=== PATIENT | female | born 1955 | race Caucasian/White ===

== ENCOUNTER 2023-12-03 10:31 | Outpatient (CLI) | payer BC, SELFPAY ==
--- NOTE | 2023-12-03 10:45 | MM_ITS ---
Patient: KO GARG Facility:?[facility] RIS Patient ID:?[id number] Site Patient ID:?[id number]. Site :?[id number] Study:?XRay-Breast Bilateral 3D W/CAD-12/03/2023 1:22:43 PM Ordering Physician:Sheri Final Report: BILATERAL SCREENING MAMMOGRAM WITH COMPUTER-AIDED DETECTION AND TOMOSYNTHESIS TECHNIQUE: CC and MLO views were obtained. These mammographic images have been obtained using full-field digital technique. These mammographic images were interpreted with the benefit of computer-aided detection. Breast Tomosynthesis was used in this interpretation. COMPARISON FILM: No previous available. FINDINGS: There are scattered areas of fibroglandular density. IMPRESSION: There is no radiographic evidence for malignancy. ASSESSMENT: BI-RADS Category 2: Benign RECOMMENDATION: Routine screening mammogram in 1 year. A lay language report of this examination will be provided to the patient. Spike Andrews M.D. Diagnostic Radiologist [email or web address] DSM/sp R& Transcribed: 4:40 p.m. SP/Dictated by: Spike Andrews MD @ 12/18/2023 10:18:00 AM Signed by:?Spike Andrews MD @12/19/2023 5:30:13 AM (Electronic Signature)
== END 2023-12-03 10:32 | disposition home or self-care (01) ==
LOC: MAMMO 10:32
PROVIDERS: PCP Internal Medicine; Visit Provider Internal Medicine
DX: Z12.31 Encounter for screening mammogram for malignant neoplasm of breast (principal)
CPT/HCPCS: 77063; 77067

== ENCOUNTER 2024-02-03 12:54 | Outpatient (CLI) | payer BC, SELFPAY ==
--- OUTSIDE RECORDS SUMMARY | 2024-02-06 07:17 | XMS_ITS | Data Portability ---
Author Organization [place] [facility], [facility] Address [address] [place] [address] Care Team Providers Care Health Record Technician Name Role Phone DEVANTE KIRSTIE Primary Care Provider [phone] Assessment No assessment recorded. Plan of Treatment Reminders Order Date Submit Date Provider Last Modified By Organization Details Last Modified Time Details Appointments None recorded. Lab urinalysi s, dipstick 2022 023 [email or web address] [facility], [address], [place], [address], 10:13:31 Referral None recorded. Procedures None recorded. Surgeries None recorded. Imaging None recorded. Medication Orders Macrobid 100 mg capsule 2022 023 [id number], [address] [place], [place], [id number], 3 13:21:36 Patient TargetsNo targets recorded. Patient InstructionsNo instructions recorded. Reason for Referral None Reported. Results Created Date Observation Date Name Description Value Unit Range Abnormal Flag LastModifiedBy Organization Detail LastModifiedTime 07/22/2007/22/2023 urina lysis , dipst ick Color-Status Yellow Not Available [facility] [address], [place], [address], 07/22/2023 10:12:26 07/22/20 23 07/22/2023 urina lysis , dipst ick Clarity-Stat us Clear Not Available [facility] [address], [place], [address], 07/22/2023 10:12:26 07/22/20 23 07/22/2023 urina lysis , dipst ick Glucose-Stat us Negati ve Not Available [facility] [address], [place], [address], 07/22/2023 10:12:26 07/22/20 23 07/22/2023 urina lysis , dipst ick Bilirubin-St atus Negati ve Not Available [facility] [address], [place], [address], 07/22/2023 10:12:26 07/22/20 23 07/22/2023 urina lysis , dipst ick Ketones-Stat us Negati ve Not Available [facility] [address], [place], [address], 07/22/2023 10:12:26 07/22/20 23 07/22/2023 urina lysis , dipst ick pH-Status 6.5 Not Available [facility] [address], [place], [address], 07/22/2023 10:12:26 07/22/20 23 07/22/2023 urina lysis , dipst ick Urobilinogen -Status 0.2 Not Available [facility] [address], [place], [address], 07/22/2023 10:12:26 07/22/20 23 07/22/2023 urina lysis , dipst ick Nitrates-Sta tus negati ve Not Available [facility] [address], [place], [address], 07/22/2023 10:12:26 07/22/20 23 07/22/2023 urina lysis , dipst ick Blood-Status Trace Not Available [facility] [address], [place], [address], 07/22/2023 10:12:26 07/22/20 23 07/22/2023 urina lysis , dipst ick Leuko-Status Trace Not Available [facility] [address], [place], [address], 07/22/2023 10:12:26 07/22/20 23 07/22/2023 urina lysis , dipst ick Specimen Type Voided Not Available [facility] [address], [place], [address], 07/22/2023 10:12:26 Result Notes None recorded. Problems Name Status Onset Date Resolution Date Notes Provider Name and Address Organization Details Recorded Time Recurrent urinary tract infection Active Ally fry [facility] 07/22/2023 10:08:15 Problem Notes None recorded. Procedures Surgical History Date Name Laterality Status Provider Name and Address Organization Details Recorded Time 07/22/20 Bladder Scan completed Ally fry [facility] 07/22/2023 10:17:43 excision of colon completed Ally fry [facility] 07/22/2023 10:09:15 Cholecystectomy completed Ally Hua fry [facility] 07/22/2023 10:09:22 Imaging Results None recorded. Procedure Notes None recorded. Medical Equipment None Reported. Allergies Allergen ID Allergen Name Allergen Category Reaction Reaction Severity Criticality Documentation Date Start Date Code Code System Note Provider Name and Address Organization Details Recorded Time 894121 Substance with sulfonami de structure and antibacte rial mechanism of action (substanc e) medicatio n Not available Not available Not available 07/09/2023 33325 8003 SNEDGAR FIGUEROA PA-C [address] [place] [address],[address], [address], [facility] 15:54:07 Medications Name Sig Start Date Stop Date Status Note LastModified by Organization Details LastModified Time losartan 50 mg tablet TAKE 1 TABLET BY MOUTH EVERY DAY active Not Available Not Available No t Available cyclobenzapr ine 10 mg tablet 07/22 completed Not Available Not Available Not Available acetaminophe n 300 mg-codeine 30 mg tablet 07/22 completed Not Available Not Available Not Available amlodipine 5 mg tablet 07/22 completed Not Available Not Available Not Available ciprofloxaci n 500 mg tablet 07/22 completed Not Available Not Available Not Available amoxicillin 500 mg tablet 07/22 completed Not Available Not Available Not Available levothyroxin e 75 mcg tablet active Not Available Not Available Not Available Macrobid 100 mg capsule Take 1 capsule every 12 hours by oral route for 3 days, for UTI. 2022 active Not Available Not Available Not Avai lable triamcinolon e acetonide 0.025 % topical cream 07/22 completed Not Available Not Available Not Available meclizine 25 mg tablet 07/22 completed Not Available Not Available Not Available triamcinolon e acetonide 0.1 % topical ointment 07/22 completed Not Available Not Available Not Available ondansetron 4 mg disintegrati ng tablet 07/22 completed Not Available Not Available Not Available losartan 100 mg tablet 07/22 completed Not Available Not Available Not Available escitalopram 5 mg tablet 07/22 completed Not Available Not Available Not Available Vitals Date Recorded Body height Body mass index (BMI) Body weight Provider Name and Address Organization Details Last Updated DateTime 07/22/2023 156.21 cm 33.5 kg/m2 82416.63 g Ally Ashley [facility] 07/22/2023 10:06:26 Social History Question Answer Notes LastModified by Organizat ion Details LastModified Time Tobacco Smoking Status Never Smoker Ally fry [facility] 07/22/2023 10:08:45 What Is Your Level Of Alcohol Consumption? Occasional [email or web address] Information not available 07/22/2023 What Was The Date Of Your Most Recent Tobacco Screening? 07/22/2023 [email or web address] Information not available 07/22/2023 Do You Or Have You Ever Used Any Other Forms Of Tobacco Or Nicotine? No [email or web address] Information not available 07/22/2023 How Many Days In The Past Year Have You Consumed 4 Or More Drinks? 0 [email or web address] Information not available 07/22/2023 Sex: Female Functional Status None recorded. Mental Status None recorded. Family History Relationship Description Onset Age of this Age Resolved Age Notes Father Malignant neoplasm o f brain Medical History Condition Response Diabetes N Sexually Transmitted Infection N Other N Bleeding Disorder N High Blood Pressure Y Kidney Stones N Cancer N Depression N Lung Disease N High Cholesterol N GERD/Acid Reflux N Heart Disease N Gynecological History Statement/Question Response Sexually Active? N Obstetrics History GPAL:G 0 P 0 0 0 0 Immunizations Vaccine Type Date Status Provider Name and Address Organization Details Recorded Time influenza, high-dose, quadrivalent 07/12/2023 completed Ally fry [facility] 07/22/2023 10:06:31 Pneumococcal conjugate PCV20, polysaccharide LFU840 conjugate, adjuvant, PF 06/20/2023 completed Ally fry [facility] 07/22/2023 10:06:31 COVID-19, mRNA, LNP-S, bivalent, PF, 50 mcg/0.5 mL or 25mcg/0.25 mL dose 03/07/2023 completed Ally fry [facility] 07/22/2023 10:06:31 RSV, bivalent, protein subunit RSVpreF, diluent reconstituted, 0.5 mL, PF 07/17/2023 completed Ally fry [facility] 07/22/2023 10:06:31 COVID-19, mRNA, LNP-S, PF, 50 mcg/0.5 mL 06/06/2023 completed Ally fry [facility] 07/22/2023 10:06:31 [facility]25/2007 [facility] 10:06:31 Influenza, seasonal, injectable 07/02/2007 completed Ally fry [facility] 07/22/2023 10:06:31 Influenza, seasonal, injectable 07/15/2008 completed Ally fry [facility] 07/22/2023 10:06:31 Influenza, seasonal, injectable 08/21/2003 [facility]/2023 10:06:32 Influenza, seasonal, injectable, preservative free 07/11/2009 completed Ally fry [facility] 07/22/2023 10:06:32 Novel [id number] 07/11/2009 completed Ally fry, [facility] 07/22/2023 10:06:32 Past Encounters Encounter ID Performer Location Encounter Start Date Encounter Closed Date Diagnosis/Indication Diagnosis SNOMED-CT Code [id number] MARBELLA FIGUEROA PA-C [facility] [address] [place] [address] 07/22/2023 09:45:50 07/31/2023 07:12:18 Recurrent urinary tract infection [id number] 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 12774959 Health Concerns Section Related Observation LastModified by Organization Detai ls LastModified Time None Recorded Concern Status LastModified by Organization Details LastModified Time None Recorded Advance Directives Directive None Recorded Payers Encounter Date Sequence Insurance Name Policy Number Policy Cuevas Covered Member ID Cuevas Member ID Guarantor Name 07/22/2023 1 [place] [id number] 1 H Yared Banuelos [id number] Marylu Banuelos Notes Date Note Type Note Provider Name and Address Organization Details Recorded Time 07/22/2023 text/html HPI Notes: 67yo F referred to urology for recurrent UTIs. Endorses regular UTIs q 3-4 months for many years. Recently moved to [place] from [place], followed with urology at and was previously on daily cipro for prophylaxis for about a year (has not been on this for years). More recently she has been using self start cipro while she is traveling. Has always tolerated cipro well. Her new PCP in [place] had concerns with self start therapy, referred to urology. Most recent UTI 2 months ago. She drinks lots of water, used to use cranberry products. She was on vaginal estrogen many years ago for a short time. No h/o kidney stones or gross hematuria. Pt reports UTI sx of: urgency, dribbling when she makes it to the restroom, chills, shakiness Has not seen gynecology in 15+ years. Allergy to sulfa Meds: levothyroxine, losartan MARBELLA FIGUEROA PA-C [address] [place] [address],[facility] [address], [place], [address], [facility] 07/23/2023 13:24:50 OBGyn Episode No OBEpisode recorded.
--- OUTSIDE RECORDS SUMMARY | 2024-02-06 07:17 | XMS_ITS | Referral Summary ---
Author Organization [facility] [place] [address] Care Team Providers Care Special Effects Person Name Role Phone Wilbert Jeong MD Primary Care Provider [phone]- [phone] Source Comments The [facility] EMR consists of medical records from all [facility] ([facility]), the [facility] ([facility]), [facility], as well as other affiliates or partners, to include: [facility] in [place], [place], [facility], [facility], [facility], [facility], [facility], [place] [facility] [place] [facility], and [facility]. The EMR may not contain all information available for this patient pursuant to the Care Everywhere program, as well as varying phases of implementation.[facility] and [facility] Allergies Active Allergy Reactions Criticality Noted Date Comments Latex RASH 11/19/2013 Medications * Medications may not be up to date as of this document. Always verifycurrent medications with the patient. Medication Sig Dispensed Refills Start Date End Date Status levothyroxine (SYNTHROID) 50 MCG tab Ac tive nitrofurantoin macrocrystals (MACRODANTIN) 50 MG cap Take 50 mg by mouth 4 times daily. Patient not taking Active ELLURA PO Active Active Problems Problem Noted Date Diagnosed Date Recurrent UTI 02/03/2015 Social History Tobacco Use Types Packs/Day Years Used Date Smoking Tobacco: Never Smokeless Tobacco: Never Alcohol Use Standard Drinks/Week Comments Not Asked 0 (1 standard drink = 0.6 oz pur e alcohol) Financial Resource Strain Answer Date R ecorded Overall Financial Strain 99 020 Skipped Doctor's Visit 3 0 Skipped Medication due to cost 3 0 11/08/2019 Utility Shut-offs 3 11/08/2019 Sex and Gender Information Value Date Recorded Sex Assigned at Not on file Gender Identity Not on file Sexual Orientation Not on file Last Filed Vital Signs Vital Sign Reading Time Taken Comments Blood Pressure 140/94 01/24/2017 8:40 AM CDT Pulse 68 01/24/2017 8:40 AM CDT Temperature - - Respiratory Rate - - Oxygen Saturation - - Inhaled Oxygen Concentration - - Weight - - Height - - Body Mass Index - - Plan of Treatment Not on file Care Teams Special Effects Person Relationship Specialty Start Date End Date Wilbert Jeong MD [address] [place] [address] PCP - General 07/18/10
--- OUTSIDE RECORDS SUMMARY | 2024-02-06 07:17 | XMS_ITS | Clinical Summary ---
Author Organization [facility] [place] [address] Care Team Providers Care Product Engineer Name Role Phone Wilbert Jeong MD Primary Care Provider [phone]- [phone] Source Comments The [facility] EMR consists of medical records from all [facility] ([facility]), the [facility] ([facility]), [facility], as well as other affiliates or partners, to include: [facility] in [place], [place], [facility], [facility], [facility], [facility], [facility], [place] [facility] [place] [facility], and [facility]. The EMR may not contain all information available for this patient pursuant to the Care Everywhere program, as well as varying phases of implementation.[facility] Allergies Active Allergy Reactions Criticality Noted Date [...] of Treatment Not on file Care Teams Product Engineer Relationship Specialty Start Date End Date Wilbert Jeong MD [address] [place] [address] PCP - General 07/18/10
== END 2024-02-03 12:55 | disposition home or self-care (01) ==
LOC: NFLDREF 02-06 07:16
PROVIDERS: Absent Provider Physician Assistant; PCP Internal Medicine; Referring Provider Internal Medicine; Visit Provider Physician Assistant
DX: N39.0 Urinary tract infection, site not specified (principal); B96.1 Klebsiella pneumoniae [K. pneumoniae] as the cause of diseases classified elsewhere
CPT/HCPCS: 87086; 87186

== ENCOUNTER 2024-03-25 10:19 | Outpatient (CLI) | payer MEDICARE, BC, SELFPAY ==
--- OUTSIDE RECORDS SUMMARY | 2024-03-27 07:23 | XMS_ITS | Clinical Summary ---
Author Organization [facility] [place] [address] Care Team Providers Care Trust Mail Clerk Name Role Phone Wilbert Jeong MD Primary Care Provider [phone]- [phone] Source Comments The [facility] EMR consists of medical records from all [facility] ([facility]), the [facility] ([facility]), [facility], as well as other affiliates or partners, to include: [facility] in [place], [place], [facility], [facility], [facility], [facility], [facility], [place] [facility] [place] [facility], and [facility]. The EMR may not contain all information available for this patient pursuant to the Care Everywhere program, as well as varying phases of implementation.[facility] and [facility] Allergies Active Allergy Reactions Criticality [...] of Treatment Not on file Care Teams Trust Mail Clerk Relationship Specialty Start Date End Date Wilbert Jeong MD [address] [place] [address] PCP - General 07/18/10
--- OUTSIDE RECORDS SUMMARY | 2024-03-27 07:23 | XMS_ITS | Referral Summary ---
Author Organization [facility] [place] [address] Care Team Providers Care Semiautomatic Stitcher Operator Name Role Phone Wilbert Jeong MD Primary Care Provider [phone]- [phone] Source Comments The [facility] EMR consists of medical records from all [facility] ([facility]), the [facility] ([facility]), [facility], as well as other affiliates or partners, to include: [facility] in [place], [place], [facility], [facility], [facility], [facility], [facility], [place] [facility] [place] [facility], and [facility]. The EMR may not contain all information available for this patient pursuant to the Care Everywhere program, as well as varying phases of implementation.[facility] Allergies Active Allergy Reactions Criticality Noted [...] of Treatment Not on file Care Teams Semiautomatic Stitcher Operator Relationship Specialty Start Date End Date Wiblert Jeong MD [address] [place] [address] PCP - General 07/18/10
--- OUTSIDE RECORDS SUMMARY | 2024-03-27 07:23 | XMS_ITS | Data Portability ---
Author Organization [place] [facility] [place] [facility], [facility] Address [address] [place] [address] Care Team Providers Care Bale Breaker Operator Name Role Phone DEVANTE KIRSTIE Primary Care Provider Assessment No assessment recorded. Plan of Treatment Reminders Order Date Submit Date Provider Last Modified By Organization Details Last Modified Time Details Appointments None recorded. Lab urinalysi s, dipstick 2022 023 [id number] [facility], [address], [place], [address], 10:13:31 Referral None recorded. Procedures None recorded. Surgeries None recorded. Imaging None recorded. Medication Orders Macrobid 100 mg capsule [address] [id number], [address] [place], [place], [id number], 3 13:21:36 Patient TargetsNo targets recorded. Patient InstructionsNo instructions recorded. Reason for Referral None Reported. Results Created Date Observation Date Name Description Value Unit Range Abnormal Flag LastModifiedBy Organization Detail LastModifiedTime 07/22/2007/22/2023 urina lysis , dipst ick Color-Status Yellow Not Available [facility] [address], [place], [address], 07/22/2023 10:12:26 07/22/20 23 07/22/2023 urina lysis , dipst ick Clarity-Stat us Clear Not Available [facility] [address], [place], [address], 07/22/2023 10:12:26 07/22/20 23 07/22/2023 urina lysis , dipst ick Glucose-Stat us Negati ve Not Available [facility] [address], [place], [address], 07/22/2023 10:12:26 07/22/20 23 07/22/2023 urina lysis , dipst ick Bilirubin-St atus Negati ve Not Available [facility] [address], [place], [address], 07/22/2023 10:12:26 07/22/20 23 07/22/2023 urina lysis , dipst ick Ketones-Stat us Negati ve Not Available [facility] [address], [place], [address], 07/22/2023 10:12:26 07/22/20 23 07/22/2023 urina lysis , dipst ick pH-Status 6.5 Not Available [facility] [address], [place], [address], 07/22/2023 10:12:26 07/22/20 23 07/22/2023 urina lysis , dipst ick Urobilinogen -Status 0.2 Not Available [facility] [address], [place], [address], 07/22/2023 10:12:26 07/22/20 23 07/22/2023 urina lysis , dipst ick Nitrates-Sta tus negati ve Not Available [facility] [address], [place], [address], 07/22/2023 10:12:26 07/22/20 23 07/22/2023 urina lysis , dipst ick Blood-Status Trace Not Available [facility] [address], [place], [address], 07/22/2023 10:12:26 07/22/20 23 07/22/2023 urina lysis , dipst ick Leuko-Status Trace Not Available [facility] [address], [place], [address], 07/22/2023 10:12:26 07/22/20 23 07/22/2023 urina lysis , dipst ick Specimen Type Voided Not Available [facility] [address], [place], [address], 07/22/2023 10:12:26 Result Notes None recorded. Problems Name Status Onset Date Resolution Date Notes Provider Name and Address Organization Details Recorded Time Recurrent urinary tract infection Active Ally fry [facility] 07/22/2023 10:08:15 Problem Notes None recorded. Procedures Surgical History Date Name Laterality Status Provider Name and Address Organization Details Recorded Time 07/22/20 Bladder Scan completed Ally fry [facility] 07/22/2023 10:17:43 excision of colon completed Ally fry [facility] 07/22/2023 10:09:15 Cholecystectomy completed Ally Hua fry [facility] 07/22/2023 10:09:22 Imaging Results None recorded. Procedure Notes None recorded. Medical Equipment None Reported. Allergies Allergen ID Allergen Name Allergen Category Reaction Reaction Severity Criticality Documentation Date Start Date Code Code System Note Provider Name and Address Organization Details Recorded Time 931982 Substance with sulfonami de structure and antibacte rial mechanism of action (substanc e) medicatio n Not available Not available Not available 07/09/2023 79120 8003 SNEDGAR FIGUEROA PA-C [address] [place] [address],[address], [address], [facility] 15:54:07 Medications Name Sig Start Date [...] Updated DateTime 07/22/2023 156.21 cm 33.5 kg/m2 57248.63 g Ally Ashley [facility] 07/22/2023 10:06:26 Social History Question Answer Notes LastModified by Organizat ion Details LastModified Time Tobacco Smoking Status Never Smoker Ally fry [facility] 07/22/2023 10:08:45 What Is Your Level Of Alcohol Consumption? Occasional [email or web address] Information not available 07/22/2023 What Was The Date Of Your Most Recent Tobacco Screening? 07/22/2023 [email or web address] Information not available 07/22/2023 Do You Or Have You Ever Used Any Other Forms Of Tobacco Or Nicotine? No [email or web address] Information not available 07/22/2023 How Many Days In The Past Year Have You Consumed 4 Or More Drinks? 0 [email or web address] Information not available 07/22/2023 Sex: Unknown Functional Status None recorded. Mental Status None recorded. Family History Relationship Description Onset Age of this Age Resolved Age Notes Father Malignant neoplasm o f brain Medical History Condition Response Other N High Blood Pressure Y Kidney Stones N Lung Disease N Depression N GERD/Acid Reflux N Sexually Transmitted Infection N Diabetes N Bleeding Disorder N Cancer N High Cholesterol N Heart Disease N Gynecological History Statement/Question Response Sexually Active? N Obstetrics History GPAL:G 0 P 0 0 0 0 Immunizations Vaccine Type Date Status Provider Name and Address Organization Details Recorded Time Influenza, high-dose, quadrivalent, PF 07/12/2023 completed Ally fry [facility] 07/22/2023 10:06:31 Pneumococcal conjugate PCV20, polysaccharide FBH125 conjugate, adjuvant, PF 06/20/2023 completed Ally fry [facility] 07/22/2023 10:06:31 COVID-19, mRNA, LNP-S, bivalent, PF, 50 mcg/0.5 mL or 25mcg/0.25 mL dose 03/07/2023 completed Ally fry [facility] 07/22/2023 10:06:31 RSV, bivalent, protein subunit RSVpreF, diluent reconstituted, 0.5 mL, PF [facility] 10:06:31 COVID-19, mRNA, LNP-S, PF, 50 mcg/0.5 mL 06/06/2023 lenin fry [facility] 07/22/2023 10:06:31 Tdap 03/25/2007 [facility] 10:06:31 Influenza, split virus, trivalent, preservative 07/02/2007 lenin fry [facility] 07/22/2023 10:06:31 Influenza, split virus, trivalent, preservative 07/15/2008 completed Ally fry [facility] 07/22/2023 10:06:31 Influenza, split virus, trivalent, preservative 08/21/2003 completed Ally fry [facility] 07/22/2023 10:06:32 Influenza, split virus, trivalent, PF 07/11/2009 completed Ally fry [facility] 07/22/2023 10:06:32 Novel [id number] 07/11/2009 completed Ally fry [facility] 07/22/2023 10:06:32 Past Encounters Encounter ID Performer Location Encounter Start Date Encounter Closed Date Diagnosis/Indication Diagnosis SNOMED-CT Code [id number] MARBELLA FIGUEROA PA-C [facility] [address] [address] 07/22/2023 09:45:50 07/31/2023 07:12:18 Recurrent urinary tract infection 368812609 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 [id number] Health Concerns Section Related Observation LastModified by Organization Detai ls LastModified Time None Recorded Concern Status LastModified by Organization Details LastModified Time None Recorded Advance Directives Directive None Recorded Payers Encounter Date Sequence Insurance Name Policy Number Policy Cuevas Covered Member ID Cuevas Member ID Guarantor Name 07/22/2023 1 [place] [id number] 1 H Yared Banuelos [id number] Marylu Banuelos Notes Date Note Type Note Provider Name and Address Organization Details Recorded Time 07/22/2023 text/html HPI Notes: 67yo F referred to urology for recurrent UTIs. Endorses regular UTIs q 3-4 months for many years. Recently moved to [place] from [place], followed with urology at and was previously on daily cipro for prophylaxis for about a year (has not been on this for years). More recently she has been using self start cipro while she is traveling. Has always tolerated cipro well. Her new PCP in [place] had concerns with self start therapy, referred [...] sulfa Meds: levothyroxine, losartan MARBELLA FIGUEROA PA-C [address], [place], [address], [facility] 07/23/2023 13:24:50 OBGyn Episode No OBEpisode recorded.
== END 2024-03-25 10:20 | disposition home or self-care (01) ==
LOC: NFLDREF 03-27 07:21
PROVIDERS: PCP Internal Medicine; Referring Provider Internal Medicine; Visit Provider Nurse Practitioner Family
DX: N39.0 Urinary tract infection, site not specified (principal)
CPT/HCPCS: 87086

== ENCOUNTER 2024-03-27 08:36 | Outpatient (CLI) | payer MEDICARE, BC, SELFPAY ==
--- OUTSIDE RECORDS SUMMARY | 2024-03-30 14:41 | XMS_ITS | Data Portability ---
Author Organization [place] - [place] [facility], [facility] Address [address] [place] [address] Care Team Providers Care Loadmaster Name Role Phone DEVANTE KIRSTIE Primary Care Provider Assessment No assessment recorded. Plan of Treatment Reminders Order Date Submit Date Provider Last Modified By Organization Details Last Modified Time Details Appointments None recorded. Lab urinalysi s, dipstick 2022 023 [id number] [facility], [address], [place], [address], 10:13:31 Referral None recorded. Procedures None recorded. Surgeries None recorded. Imaging None recorded. Medication Orders Macrobid 100 mg capsule 2022 023 [id number], [address] [place], [place], [phone], 3 13:21:36 Patient TargetsNo targets recorded. Patient InstructionsNo instructions recorded. Reason for Referral None Reported. Results Created Date Observation Date Name Description Value Unit Range Abnormal Flag LastModifiedBy Organization Detail LastModifiedTime 07/22/2007/22/2023 urina lysis , dipst ick Color-Status Yellow Not Available [facility] [address], [place], [address], 07/22/2023 10:12:26 07/22/20 23 07/22/2023 urina lysis , dipst ick Clarity-Stat us Clear Not Available [facility] [address], [place], [address], 07/22/2023 10:12:26 07/22/20 23 07/22/2023 urina lysis , dipst ick Glucose-Stat us Negati ve Not Available [facility] [address], [place], [address], 07/22/2023 10:12:26 07/22/20 23 07/22/2023 urina lysis , dipst ick Bilirubin-St atus Negati ve Not Available [facility] [address], [place], [address], 07/22/2023 10:12:26 07/22/20 23 07/22/2023 urina lysis , dipst ick Ketones-Stat us Negati ve Not Available [facility] [address], [place], [address], 07/22/2023 10:12:26 07/22/20 23 07/22/2023 urina lysis , dipst ick pH-Status 6.5 Not Available [facility] [address], [place], [address], 07/22/2023 10:12:26 07/22/20 23 07/22/2023 urina lysis , dipst ick Urobilinogen -Status 0.2 Not Available [facility] [address], [place], [address], 07/22/2023 10:12:26 07/22/20 23 07/22/2023 urina lysis , dipst ick Nitrates-Sta tus negati ve Not Available [facility] [address], [place], [address], 07/22/2023 10:12:26 07/22/20 23 07/22/2023 urina lysis , dipst ick Blood-Status Trace Not Available [facility] [address], [place], [address], 07/22/2023 10:12:26 07/22/20 23 07/22/2023 urina lysis , dipst ick Leuko-Status Trace Not Available [facility] [address], [place], [address], 07/22/2023 10:12:26 07/22/20 23 07/22/2023 urina lysis , dipst ick Specimen Type Voided Not Available [facility] [address], [place], [address], 07/22/2023 10:12:26 Result Notes None recorded. Problems Name Status Onset Date Resolution Date Notes Provider Name and Address Organization Details Recorded Time Recurrent urinary tract infection Active Ally fry [facility] 07/22/2023 10:08:15 Problem Notes None recorded. Procedures Surgical History Date Name Laterality Status Provider Name and Address Organization Details Recorded Time 07/22/20 Bladder Scan completed Ally fry [facility] 07/22/2023 10:17:43 excision of colon completed Ally fry [facility] 07/22/2023 10:09:15 Cholecystectomy completed Ally Hua fry [facility] 07/22/2023 10:09:22 Imaging Results None recorded. Procedure Notes None recorded. Medical Equipment None Reported. Allergies Allergen ID Allergen Name Allergen Category Reaction Reaction Severity Criticality Documentation Date Start Date Code Code System Note Provider Name and Address Organization Details Recorded Time 683700 Substance with sulfonami de structure and antibacte rial mechanism of action (substanc e) medicatio n Not available Not available Not available 07/09/2023 21240 8003 SNEDGAR FIGUEROA PA-C [address] [place] [address],[address], [address], [facility] 15:54:07 Medications Name Sig Start [...] Updated DateTime 07/22/2023 156.21 cm 33.5 kg/m2 17245.63 g Ally Ashley [facility] 07/22/2023 10:06:26 Social History Question Answer Notes LastModified by Organizat ion Details LastModified Time Tobacco Smoking Status Never Smoker Ally fry [facility] 07/22/2023 10:08:45 What Is Your Level Of Alcohol Consumption? Occasional [email or web address] Information not available 07/22/2023 What Was The Date Of Your Most Recent Tobacco Screening? 07/22/2023 [email or web address] Information not available 07/22/2023 Do You Or Have You Ever Used Any Other Forms Of Tobacco Or Nicotine? No [email or web address] Information not available 07/22/2023 How Many Days [...] High Blood Pressure Y Kidney Stones N High Cholesterol N GERD/Acid Reflux N Heart Disease N Cancer N Lung Disease N Depression N Gynecological History Statement/Question Response Sexually Active? N Obstetrics History GPAL:G 0 P 0 0 0 0 Immunizations Vaccine Type Date Status Provider Name and Address Organization Details Recorded Time Influenza, high-dose, quadrivalent, PF 07/12/2023 completed Ally fry [facility] 07/22/2023 10:06:31 Pneumococcal conjugate PCV20, polysaccharide [id number] conjugate, adjuvant, PF 06/20/2023 completed Ally fry [facility] 07/22/2023 10:06:31 COVID-19, mRNA, LNP-S, bivalent, PF, 50 mcg/0.5 mL or 25mcg/0.25 mL dose 03/07/2023 completed Ally fry [facility] 07/22/2023 10:06:31 RSV, bivalent, protein subunit RSVpreF, diluent reconstituted, 0.5 mL, PF 07/17/2023 completed Ally fry [facility] 07/22/2023 10:06:31 COVID-19, mRNA, LNP-S, PF, 50 mcg/0.5 mL 06/06/2023 lenin fry [facility] 07/22/2023 10:06:31 Tdap 03/25/2007 completed Ally fry [facility] 07/22/2023 10:06:31 Influenza, split virus, trivalent, preservative 07/02/2007 lenin fry [facility] 07/22/2023 10:06:31 Influenza, split virus, trivalent, preservative 07/15/2008 completed Ally fry [facility] 07/22/2023 10:06:31 Influenza, split virus, trivalent, preservative 08/21/2003 completed Ally fry [facility] 07/22/2023 10:06:32 Influenza, split virus, trivalent, PF 07/11/2009 completed Ally fry [facility] 07/22/2023 10:06:32 Novel [id number] 07/11/2009 completed Ally fry [facility] 07/22/2023 10:06:32 Past Encounters Encounter ID Performer Location Encounter Start Date Encounter Closed Date Diagnosis/Indication Diagnosis SNOMED-CT Code [id number] MARBELLA FIGUEROA PA-C [facility] [address] [address] 07/22/2023 09:45:50 07/31/2023 07:12:18 Recurrent urinary tract infection [id number] 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 [id number] Health Concerns Section Related Observation LastModified by Organization Detai ls LastModified Time None Recorded Concern Status LastModified by Organization Details LastModified Time None Recorded Advance Directives Directive None Recorded Payers Encounter Date Sequence Insurance Name Policy Number Policy Cuevas Covered Member ID Cuevas Member ID Guarantor Name 07/22/2023 1 [place] [id number] 1 H Yared Banuelos [id number] Marylu Banuelos Notes Date Note Type Note Provider Name and Address Organization Details Recorded Time 07/22/2023 text/html HPI Notes: 67yo F referred to urology for recurrent UTIs. Endorses regular UTIs q 3-4 months for many years. Recently moved to [place] from [place], followed with urology at and was previously on daily cipro for prophylaxis for about a year (has not been on this for years). More recently she has been using self start cipro while she is traveling. Has always tolerated cipro well. [place] new [place] in [place] had concerns with self start therapy, referred [...] Meds: levothyroxine, losartan MARBELLA FIGUEROA PA-C [address], [place], [address], [facility] 07/23/2023 13:24:50 OBGyn Episode No OBEpisode recorded.
--- OUTSIDE RECORDS SUMMARY | 2024-03-30 14:41 | XMS_ITS | Clinical Summary ---
Author Organization [facility] [place] [address] Care Team Providers Care Cyber Defense Analyst Name Role Phone Wilbert Jeong MD Primary Care Provider [phone]- [phone] [facility] EMR consists of medical records from all [facility] ([facility]), the [facility] ([facility]), [facility], as well as other affiliates or partners, to include: [facility] in [place], [place], [facility], [facility], [facility], [facility], [facility], [facility], and [facility]. The EMR may not contain all information available for this patient pursuant to the Care Everywhere program, as well as varying phases of implementation.[facility] Allergies Active Allergy Reactions Criticality [...] of Treatment Not on file Care Teams Cyber Defense Analyst Relationship Specialty Start Date End Date Wilbert Jeong MD [address] [place] [address] PCP - General 07/18/10
--- OUTSIDE RECORDS SUMMARY | 2024-03-30 14:42 | XMS_ITS | Referral Summary ---
Author Organization [facility] [place] [address] Care Team Providers Care Knife Blade Polisher Name Role Phone Wilbert Jeong MD Primary Care Provider [phone]- [phone] Source Comments The [facility] EMR consists of medical records from all [facility] ([facility]), the [facility] ([facility]), [facility], as well as other affiliates or partners, to include: [facility] in [place], [place], [facility], [facility], [facility], [facility], [facility], [facility], and [facility]. The EMR may not contain all information available for this patient pursuant to the Care Everywhere program, as well as varying phases of implementation.[facility] Allergies Active Allergy Reactions Criticality Noted [...] of Treatment Not on file Care Teams Knife Blade Polisher Relationship Specialty Start Date End Date Wilbert Jeong MD [address] [place] [address] PCP - General 07/18/10
== END 2024-03-27 08:37 | disposition home or self-care (01) ==
LOC: NFLDREF 03-30 14:39
PROVIDERS: PCP Internal Medicine; Referring Provider Internal Medicine; Visit Provider Internal Medicine
DX: I10 Essential (primary) hypertension (principal); E03.9 Hypothyroidism, unspecified
CPT/HCPCS: 80048; 84443

== ENCOUNTER 2025-02-15 12:47 | Outpatient (CLI) | payer MEDICARE, BC, SELFPAY ==
--- NOTE | 2025-02-15 13:00 | CRLHL7_ITS ---
For Patients: As a result of the Century Cures Act, medical imaging exams and procedure reports are released immediately into your electronic medical record. You may view this report before your referring provider. If you have questions, please contact your health care provider. INDICATION: BILATERAL SCREENING MAMMOGRAM, ASYMPTOMATIC 69 Y/O FEMALE COMPARISON: 12/03/2023 TECHNIQUE: Digital mammogram in CC and MLO projections including computer-aided detection (CAD) and tomosynthesis. BREAST COMPOSITION: There are scattered areas of fibroglandular density. FINDINGS: No suspicious findings. ASSESSMENT: BI-RADS 1 Negative RECOMMENDATION: Annual screening mammogram. A lay language report of this examination will be provided to the patient. Dictated by: Spike Andrews MD @ 02/18/2025 10:46:16 (Electronically Signed)
== END 2025-02-15 12:48 | disposition home or self-care (01) ==
LOC: MAMMO 12:47
PROVIDERS: PCP Internal Medicine; Visit Provider Internal Medicine
DX: Z12.31 Encounter for screening mammogram for malignant neoplasm of breast (principal)
CPT/HCPCS: 77063; 77067

== ENCOUNTER 2025-06-07 13:15 | Outpatient (CLI) | payer MEDICARE, BC, SELFPAY | END 2025-06-07 13:16 | disposition home or self-care (01) | LOC: NFLDREF 06-08 18:43 | PROVIDERS: PCP Internal Medicine; Referring Provider Internal Medicine; Visit Provider Internal Medicine | DX: I10 Essential (primary) hypertension (principal); E03.9 Hypothyroidism, unspecified | CPT/HCPCS: 80048; 84443 ==

== ENCOUNTER 2025-08-06 10:10 | Emergency (ER) | payer MEDICARE, BC, SELFPAY ==
--- OUTSIDE RECORDS SUMMARY | 2025-08-06 10:13 | XMS_ITS | Data Portability ---
Author Organization [facility] Address [address] [place] [address] Care Team Providers Care Organ Pipe Voicer Name Role Phone KIRSTIE LOW Primary Care Provider Assessment No assessment recorded. Plan of Treatment Reminders Order Date Submit Date Provider Last Modified By Organization Details Last Modified Time Details Appointments None recorded. Lab urinalysi s, dipstick 2024 025 [facility], [address], [place], [address], 5 10:39:42 urinalysi s, dipstick 2022 023 [email or web address] [facility], [address], [place], [address], 3 10:13:31 Referral None recorded. Procedures None recorded. Surgeries None recorded. Imaging CT, abdomen + pelvis, w/o contrast - NO PREV 2024 025 [facility] , [address], [place], [address], 5 19:18:12 Medication Orders Macrobid 100 mg capsule 2022 023 [id number], [address] [place], [place], [id number], 13:21:36 Patient TargetsNo targets recorded. Patient InstructionsNo instructions recorded. Reason for Referral None Reported. Results Created Date Observation Date Name Description Value Unit Range Abnormal Flag Note LastModifiedBy Organization Detail LastModifiedTime 07/22/2007/22/2023 urina lysis , dipst ick Color-Status Yellow Not Available [facility] [address], [place], [address], 07/22/2023 10:12:26 07/22/2007/22/2023 urina lysis , dipst ick Clarity-Stat us Clear Not Available [facility] [address], [place], [address], 07/22/2023 10:12:26 07/22/2007/22/2023 urina lysis , dipst ick Glucose-Stat us Negati ve Not Available [facility] [address], [place], [address], 07/22/2023 10:12:26 07/22/20 23 07/22/2023 urina lysis , dipst ick Bilirubin-St atus Negati ve Not Available [facility] [address], [place], [address], 07/22/2023 10:12:26 07/22/20 23 07/22/2023 urina lysis , dipst ick Ketones-Stat us Negati ve Not Available [facility] [address], [place], [address], 07/22/2023 10:12:26 07/22/2007/22/2023 urina lysis , dipst ick pH-Status 6.5 Not Available [facility] [address], [place], [address], 07/22/2023 10:12:26 07/22/20 23 07/22/2023 urina lysis , dipst ick Urobilinogen -Status 0.2 Not Available [facility] [address], [place], [address], 07/22/2023 10:12:26 07/22/20 23 07/22/2023 urina lysis , dipst ick Nitrates-Sta tus negati ve Not Available [facility] [address], [place], [address], 07/22/2023 10:12:26 07/22/20 23 07/22/2023 urina lysis , dipst ick Blood-Status Trace Not Available [facility] [address], [place], [address], 07/22/2023 10:12:26 07/22/20 23 07/22/2023 urina lysis , dipst ick Leuko-Status Trace Not Available [facility] [address], [place], [address], 07/22/2023 10:12:26 07/22/20 23 07/22/2023 urina lysis , dipst ick Specimen Type Voided Not Available [facility] [address], [place], [address], 07/22/2023 10:12:26 03/01/20 25 03/01/2025 urina lysis , dipst ick BLOOD Negati ve Not Available [facility] [address], [place], [address], 02/28/2025 22:24:38 03/01/20 25 03/01/2025 urina lysis , dipst ick BILIRUBIN Negati ve Not Available [facility] [address], [place], [address], 02/28/2025 22:24:38 03/01/20 25 03/01/2025 urina lysis , dipst ick UROBILINOGEN 0.2 mg/dL (Norm) Not Available [facility] [address], [place], [address], 02/28/2025 22:24:38 03/01/20 25 03/01/2025 urina lysis , dipst ick KETONES Negati ve Not Available [facility] [address], [place], [address], 02/28/2025 22:24:38 03/01/20 25 03/01/2025 urina lysis , dipst ick PROTEIN Negati ve Not Available [facility] [address], [place], [address], 02/28/2025 22:24:38 03/01/20 25 03/01/2025 urina lysis , dipst ick NITRITES Negati ve Not Available [facility] [address], [place], [address], 02/28/2025 22:24:38 03/01/20 25 03/01/2025 urina lysis , dipst ick GLUCOSE Negati ve Not Available [facility] [address], [place], [address], 02/28/2025 22:24:38 03/01/20 25 03/01/2025 urina lysis , dipst ick p.H. 5.5 Not Available [facility] [address], [place], [address], 02/28/2025 22:24:38 03/01/20 25 03/01/2025 urina lysis , dipst ick S.G. (Specific [place]) 1.010 Not Available [facility] [address], [place], [address], 02/28/2025 22:24:38 03/01/20 25 03/01/2025 urina lysis , dipst ick LEUKOCYTES Negati ve Not Available [facility] [address], [place], [address], 02/28/2025 22:24:38 03/25/20 25 03/25/2025 CT, abdom en + pelvi s, w/o contr ast EXAM: CT, ABDOME N + PELVIS , W/O CONTRA ST LOCATI ON: [place] [facility] DATE: 025 INDICA TION: Urinar y tract infect ion, site not specif ied. COMPAR WILLIAM: None. TECHNI QUE: CT scan of the abdome n and pelvis was perfor med withou t IV contra st. Multip lanar reform ats were obtain ed. Dose reduct ion techni ques were used. CONTRA ST: None. 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 Linear atelec tasis or scarri ng in the bilate ral lung bases. HEPATO BILIAR Y: Low-at tenuat ion subcen timete r foci in both lobes of the liver have benign appear ance. No follow -up needed . Normal contou r with no signif icant mass. Postch olecys tectom y change s. PANCRE : No signif icant mass, duct dilata tion, or inflam matory change . SPLEEN : Normal size. ADRENA L GLANDS : No signif icant nodule s. KIDNEY S/BLAD BINU: No signif icant stones , mass, or hydron ephros is. No hydrou reter. No stones are seen along the course s of the ureter s. Urinar y bladde r unrema rkable . BOWEL: Scatte red coloni c divert icula withou t eviden ce for divert iculit is. Surgic al anasto mosis in the mid distal sigmoi d colon. Nonspe cific nonobs tructi ve bowel gas patter n. No CT eviden ce for append icitis . LYMPH NODES: No lympha denopa thy. VASCUL ATURE: No abdomi nal aortic aneury sm. PELVIC ORGANS : Anteve rted uterus . No pelvic masses or free fluid. MUSCUL OSKELE DILCIA: Mild spondy losis. Right perium bilica l ventra l hernia contai serafin fat. Additi onal left lower quadra nt ventra l hernia contai serafin fat. Left anteri or pelvic wall ventra l hernia contai serafin fat. Bilate ral inguin al hernia s contai serafin fat. IMPRES CANDIE: 1. No eviden ce for urinar y tract calcul i or hydron ephros is. 2. Scatte red coloni c divert icula withou t divert iculit is. 3. Multip le ventra l hernia s contai serafin fat. 4. Bilate ral inguin al hernia s contai serafin fat. 5. Low-at tenuat ion subcen timete r foci in both lobes of the liver have benign appear ance. No follow -up needed . This report was electr onical ly interp reted by: Lesly العلي i, MD on 2024 at 18:15 [facility] [place] [address] [facility] [address], [place], [address], 03/26/2025 13:50:20 Result Notes Documentation Provider Name and Address Organization Details Recorded Time Ct, Abdomen + Pelvis, W/o Contrast : EXAM: CT, ABDOMEN + PELVIS, W/O CONTRAST LOCATION: [facility] DATE: 03/25/2025 INDICATION: Urinary tract infection, site not specified. COMPARISON: None. TECHNIQUE: CT scan of the abdomen and pelvis was performed without IV contrast. Multiplanar reformats were obtained. Dose reduction techniques were used. CONTRAST: None. FINDINGS: LOWER CHEST: Scattered atelectasis and/or remote postinflammatory change in the left lower lobe posterior to the hemidiaphragm. Linear atelectasis or scarring in the bilateral lung bases. HEPATOBILIARY: Low-attenuation subcentimeter foci in both lobes of the liver have benign appearance. No follow-up needed. Normal contour with no significant mass. Postcholecystectomy changes. PANCREAS: No significant mass, duct dilatation, or inflammatory change. SPLEEN: Normal size. ADRENAL GLANDS: No significant nodules. KIDNEYS/BLADDER: No significant stones, mass, or hydronephrosis. No hydroureter. No stones are seen along the courses of the ureters. Urinary bladder unremarkable. BOWEL: Scattered colonic diverticula without evidence for diverticulitis. Surgical anastomosis in the mid distal sigmoid colon. Nonspecific nonobstructive bowel gas pattern. No CT evidence for appendicitis. LYMPH NODES: No lymphadenopathy. VASCULATURE: No abdominal aortic aneurysm. PELVIC ORGANS: Anteverted uterus. No pelvic masses or free fluid. MUSCULOSKELETAL: Mild spondylosis. Right periumbilical ventral hernia containing fat. Additional left lower quadrant ventral hernia containing fat. Left anterior pelvic wall ventral hernia containing fat. Bilateral inguinal hernias containing fat. IMPRESSION: 1. No evidence for urinary tract calculi or hydronephrosis. 2. Scattered colonic diverticula without diverticulitis. 3. Multiple ventral hernias containing fat. 4. Bilateral inguinal hernias containing fat. 5. Low-attenuation subcentimeter foci in both lobes of the liver have benign appearance. No follow-up needed. This report was electronically interpreted by: Juanpablo Sagastume MD on 03/25/2025 at 18:15 MARBELLA FIGUEROA PA-C [address] [place], [place] [address], [address] 03/26/2025 13:50:20 Problems Name Problem SNOMED Code Status Onset Date Resolution Date Notes Provider Name and Address Organization Details Recorded Time Recurrent urinary tract infection 802979730 Active 023 [facility] 10[facility]08:15 Problem Notes None recorded. Procedures Surgical History Date Name Laterality Status Provider Name and Address Organization Details Recorded Time 03/01/20 25 Bladder Scan completed Briana Puente [facility] 03/01/2025 10:13:34 07/22/20 23 Bladder Scan completed Ally Dion [facility] 07/22/2023 10:17:43 excision of colon completed Ally [facility] 07/22/2023 10:09:15 Cholecystectomy completed Ally Wilson [facility] 07/22/2023 10:09:22 Imaging Results None recorded. Procedure Notes None recorded. Medical Equipment None Reported. Allergies Allergen ID Allergen Name Allergen Category Reaction Reaction Severity Criticality Documentation Date Start Date Code Code System Note Provider Name and Address Organization Details Recorded Time 111054 Substance with sulfonami de structure and antibacte rial mechanism of action (substanc e) medicatio n Not available Not available Not available 07/09/2023 30236 8003 SNEDGAR FIGUEROA PA-C [address] [facility] [address], [address], [facility] 3 15:54:07 Medications Name Sig Start Date Stop [...] Not Available ciprofloxaci n 500 mg tablet TAKE 1 TABLET BY MOUTH TWICE DAILY FOR 7 DAYS 02/26 completed Not Available Not Available Not Available amoxicillin 500 mg tablet 07/22 completed Not Available Not Available Not Available levothyroxin e 75 mcg tablet TAKE 1 TABLET BY MOUTH DAILY active Not Available Not Available No t Available prednisolone acetate 1 % eye drops,suspen candie SHAKE LIQUID AND INSTILL 1 DROP IN BOTH EYES EVERY NIGHT AT BEDTIME FOR 2 WEEKS active Not Available Not Available No t Available triamcinolon e acetonide 0.025 % topical cream 07/22 completed Not Available Not Available Not Available meclizine 25 mg tablet 07/22 completed Not Available Not Available Not Available cephalexin 500 mg capsule TAKE 1 CAPSULE BY MOUTH TWICE DAILY FOR 5 DAYS FOR UTI active Not Available Not Available No t Available oseltamivir 75 mg capsule TAKE 1 CAPSULE BY MOUTH EVERY DAY FOR 7 DAYS active Not Available Not Available No t Available triamcinolon e acetonide 0.1 % topical ointment 07/22 completed Not Available Not Available Not Available ondansetron 4 mg disintegrati ng tablet 07/22 completed Not Available Not Available Not Available losartan 100 mg tablet 07/22 completed Not Available Not Available Not Available escitalopram 5 mg tablet 07/22 completed Not Available Not Available Not Available nitrofuranto in monohydrate/ macrocrystal s 100 mg capsule TAKE 1 CAPSULE BY MOUTH EVERY 12 HOURS FOR 3 DAYS FOR UTI 02/26 completed Not Available Not Available Not Available Vitals Date Recorded Body height Body mass index (BMI) Body weight Provider Name and Address Organization Details Last Updated DateTime 03/01/2025 157.48 cm 34.2 kg/m2 56012.77 g Briana Puente [facility] 03/01/2025 10:14:54 Date Recorded Body height Body mass index (BMI) Body weight Provider Name and Address Organization Details Last Updated DateTime 07/22/2023 156.21 cm 33.5 kg/m2 90699.63 g Ally Ashley [facility] 07/22/2023 10:06:26 Social History Question Answer Notes LastModified by Organizat [employer] Details LastModified Time Tobacco Smoking Status [facility]/22/2023 10:08:45 What Is Your Level Of Caffeine Consumption? Moderate Information not available 03/01/2025 What Was The Date Of Your Most Recent Tobacco Screening? 03/01/2025 Information not available 03/01/2025 How Many Days In The Past Year Have You Consumed 4 Or More Drinks? 0 [email or web address] Information not available 07/22/2023 Sex: Unknown Functional Status Question Answer Note LastModified by Organ[employer]at [employer] Details LastModified Time Do you or have you ever used any other forms of tobacco or nicotine? No [email or web address] Information not available 07/22/2023 What is your level of alcohol consumption? Occasional [email or web address] Information not available 07/22/2023 Mental Status None recorded. Family History Relationship Description Onset Age of this Age Resolved Age Notes LastModified by Organization Details LastModified Time Father Malignant neoplasm of brain [email or web address] Not available 2022 10:08:35 Medical History Condition Response Sexually Transmitted Infection N Diabetes N Other N Bleeding Disorder N High Blood Pressure Y Kidney Stones N High Cholesterol N GERD/Acid Reflux N Heart Disease N Cancer N Depression N Lung Disease N Gynecological History Statement/Question Response Sexually Active? N Obstetrics History GPAL:G 0 P 0 0 0 0 Immunizations Vaccine Type Date Status Note Provider Nam e and Address Organization Details Recorded Time COVID-19, mRNA, LNP-S, PF, 50 mcg/0.5 mL 4 completed Not Available [facility] 03/01/2025 10:02:34 Influenza, high-dose, trivalent, PF 4 completed Not Available [facility] 03/01/2025 10:02:34 COVID-19, mRNA, LNP-S, PF, 50 mcg/0.5 mL 4 completed Not Available [facility] 03/01/2025 10:02:34 COVID-19, mRNA, LNP-S, PF, 50 mcg/0.5 mL 5 completed Not Available [facility] 03/01/2025 10:02:34 Influenza, high-dose, quadrivalent, PF 3 completed Ally fry [facility] 07/22/2023 10:06:31 Pneumococcal conjugate PCV20, polysaccharide [id number] conjugate, adjuvant, PF 3 [facility] 10:06:31 COVID-19, mRNA, LNP-S, bivalent, PF, 50 mcg/0.5 mL or 25mcg/0.25 mL dose 3 completed Ally fry [facility] 07/22/2023 10:06:31 RSV, bivalent, protein subunit RSVpreF, diluent reconstituted, 0.5 mL, PF 3 completed Ally fry [facility] 07/22/2023 10:06:31 COVID-19, mRNA, LNP-S, PF, 50 mcg/0.5 mL 3 completed Ally fry [facility] 07/22/2023 10:06:31 Tdap 7 completed Ally fry [facility] 07/22/2023 10:06:31 Influenza, split virus, trivalent, preservative 7 completed Ally fry [facility] 07/22/2023 10:06:31 Influenza, split virus, trivalent, preservative 8 completed Ally fry [facility] 07/22/2023 10:06:31 Influenza, split virus, trivalent, preservative 3 completed Ally fry, [place] [facility] 07/22/2023 10:06:32 Influenza, split virus, trivalent, PF 9 completed Ally fry, [place] [facility] 07/22/2023 10:06:32 Novel [id number] 9 completed Ally fry, [facility] 07/22/2023 10:06:32 Past Encounters Encounter ID Performer Location Encounter Start Date Encounter Closed Date Diagnosis/Indication Diagnosis SNOMED-CT Code Diagnosis ICD10 Code Diagnosis IMO Codes Diagnosis Note [id number] MARBELLA FIGUEROA PA-C [facility] [address] [place] [address] 07/22/2023 09:45:50 07/31/2023 07:12:18 Recurrent urinary tract infection 484320212 N39.0 Continue to push hydrationS tart D-mannose and cranberry supplement Self start therapy with macrobid given concerns with cipro - take twice daily for 3 days if having symptoms. Encouraged to leave sample for culture whenever she is able, especially as we do not have any culture history. Female uri nary stress incontinence 00474440 N39.3 Minimal symptoms [id number] MARBELLA FIGUEROA PA-C [facility] [address] [place] [address] 03/01/2025 10:00:05 03/03/2025 14:49:18 Recurrent urinary tract infection 999030125 N39.0 - Self start therapy has been working well for her given her with travel- Unable to review cultures from the last 2 years (Hans garcia) -- will request these for review before refilling self start therapy (OK to send to [facility] )- Given her ongoing rUTIs and concern for passing sediment / small stones, will check upper tract imaging -- CT stone protocol next- Consider adding back daily D-mannose and cranberry supplement - Discussed potential benefit of vaginal estrogen -- she would like to hold off for now due to concern for cancer risk, but would consider if Jessica frequency increases despite above measures Female uri nary stress incontinence 11531801 N39.3 Health Concerns Section Related Observation LastModified by Organization Detai ls LastModified Time None Recorded Concern Status LastModified by Organization Details LastModified Time None Recorded Advance Directives Directive None Recorded Payers Insurance Date Sequence Insurance Name Policy Number Policy Cuevas Covered Member ID Cuevas Member ID Guarantor Name 03/29/2025 2 [place] [id number] Marylu Lakisha [id number] Marylu Lakisha 03/01/2025 1 [place] [id number] Marylu Lakisha [id number] Marylu Lakisha 03/22/2025 1 [place] [employer] Marylu Banuelos [id number] Marylu Lakisha 02/04/2025 1 [place] [id number] H Yared Banuelos [id number] Marylu Banuelos Notes Date Note Type Note Provider Name and Address Organization Details Recorded Time 07/22/2023 text/html 67yo F referred to urology for recurrent UTIs. Endorses regular UTIs q 3-4 months for many years. Recently moved to [place], followed with urology at and was previously on daily cipro for prophylaxis for about a year (has not been on this for years). More recently she has been using self start cipro while she is traveling. Has always tolerated cipro well. Her new PCP in [place] had concerns with self start therapy, referred [...] seen gynecology in 15+ years. Allergy to sulfaMeds: levothyroxine, losartan MARBELLA FIGUEROA PA-C [address] [place] [address],[address], [place], [address], [place] [facility] 07/23/2023 13:24:50 03/01/2025 text/html 69yo F presents for recurrent UTIs. Last seen by me for this in 2022. 07/22/23: Endorses regular UTIs q 3-4 months for many years. Recently moved to [place] from [place], followed with urology at and was previously on daily cipro for prophylaxis for about a year (has not been on this for years). More recently she has been using self start cipro while she is traveling. Has always tolerated cipro well. Her new PCP in [place] had concerns with self start therapy, referred to urology. She drinks lots of water, used to use cranberry products. She was on vaginal estrogen many years ago for a short time. No h/o kidney stones or gross hematuria. Pt reports UTI sx of: urgency, dribbling when she makes it to the restroom, chills, shakiness 03/01/25: Here for UTI follow up. Estimates about 4-5 infections over the last year. Given self start macrobid at last visit -- she uses this with traveling - uses this for 5-7 days (feels 3 days not enough). Denies UTI symptoms today. Typical symptoms include urinary urgency/frequency. She does double void. She used D-mannose for a while, no longer taking. Uses cranberry juice. She notes she occasionally passes sediment which looks like stones in her urine (but no known h/o nephrolithiasis and no recent imaging). UA blandPVR 9 ml MHx: on levothyroxine, losartan. 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
[2025-08-06 10:55] VITALS: BP 182/80; PULSE 100; RESP 100; TEMP 37.6; O2SAT 96; BMI 35.1
--- NOTE | 2025-08-06 12:09 | ED.GENADULT ---
HPI - General Adult General Time Seen by Provider: 12:09 Date Seen: 08/06/25 Chief complaint: Cough Stated complaint: pneumonia - sent from Time Seen by Provider: 08/06/25 12:09 Source: patient and RN notes reviewed Mode of arrival: ambulatory Limitations: no limitations History of Present Illness HPI narrative: This 69-year-old female was referred from urgent care this morning for worsening cough with recent treatment of pneumonia, O2 sats were 84% there. On arrival here in triage, she was 96%. She was seen in urgent care on 07/16 for cough of 2 weeks duration, diagnosed with pneumonia. She was placed on doxycycline for 7 days and given prednisone 40 mg daily for 5 days. She had a chest x-ray at that time concerning for subtle right middle lobe pneumonia. She states she did go back to her clinic provider, the doxycycline was extended, states she took another 10 days. Cough did improve somewhat but then started to worsen again, prompting her to go to urgent care today. She also had some sputum with some blood streaking in it today. She otherwise states she has not had any fevers. She has felt more upper throat in large airway congestion per her report. She has had some intermittent headaches with this. She does note that all 3 of her granddaughters had subsequent diagnosis of pneumonia, she became sick and was diagnosed with pneumonia, her subsequently was diagnosed with pneumonia and now the father of her grand children has pneumonia as well. She is not sure if that is important or not. She also has no significant current smoking history, very remote use of intermittent cigarettes and college. There has been no chest pain with this, no shortness of breath. She states she was on doxycycline long-term years back for treatment of Lyme disease. Related Data Home Medications ?Medication ?Instructions ?Recorded ?Confirmed cephalexin 500 mg tablet 500 mg PO .PRN 06/10/25 08/06/25 Previous Rx's ?Medication ?Instructions ?Recorded levothyroxine 75 mcg tablet 75 mcg PO DAILY #90 tabs 06/10/25 losartan 50 mg tablet 50 mg PO QDAY #90 tabs 06/10/25 azithromycin 250 mg tablet See Rx Instructions PO .COMPLEX #6 08/06/25 tabs cefdinir 300 mg capsule 300 mg PO BID #20 caps 08/06/25 Allergies Allergy/AdvReac Type Severity Reaction Status Date / Time sulfite Allergy Intermediate Cough Verified 08/06/25 13:45 latex Allergy Mild Rash Verified 08/06/25 13:45 lobster Allergy Unknown Unknown Verified 08/06/25 13:45 Sulfa (Sulfonamide Allergy Unknown Hives Verified 08/06/25 13:45 Antibiotics) shellfish derived Allergy Nausea Verified 08/06/25 13:45 Review of Systems Status of ROS: Reports: 6 or more systems reviewed and unremarkable except as noted in History and below PFSH PFS Medical History Benign positional vertigo ?H81.10 - Benign paroxysmal vertigo, unspecified ear (ICD-10) History of Lyme disease ?Z86.19 - Personal history of other infectious and parasitic diseases (ICD-10) Surgical History History of appendectomy (11/29/20) ?Z90.49 - Acquired absence of other specified parts of digestive tract (ICD-10) History of partial thyroidectomy (2007) ?E89.0 - Postprocedural hypothyroidism (ICD-10) History of laparoscopic cholecystectomy (10/18/19) ?Z90.49 - Acquired absence of other specified parts of digestive tract (ICD-10) History of colectomy ?Z90.49 - Acquired absence of other specified parts of digestive tract (ICD-10) Family History Father History of quadruple bypass Brain cancer Mother High blood pressure Other Heart disease Social History What is your current living situation?: I presently have a place to live Problems where you live: no known problems In the past 12 months, utilities in danger of being shut off: no In past 12 months, lack of transportation kept you from medical appts, meetings, work, or getting things needed for daily living: no In the past 12 mos, have been you worried that your food would run out before you had money to buy more?: never true In the past 12 mos, the food you bought just didn't last and you didn't have money to buy more?: never true How often does anyone, including family, friends and others, physically hurt you: never How often does anyone, including family, friends and others, insult or talk down to you: never How often does anyone, including family, friends and others, threaten you with harm: never How often does anyone, including family, friends and others, scream or curse at you: never Exam Const: Vital Signs, click to edit/add: Vital Signs - 24 hr 08/06/25 10:55 08/06/25 12:40 08/06/25 14:18 Temperature 99.7 F H 100.1 F H Pulse Rate [Pulse Oximeter] 100 84 Respiratory Rate 100 H 20 Blood Pressure [Ri ght Upper Arm] 182/80 H 128/84 Pulse Oximetry 96 99 99 Oxygen Delivery Me thod Room Air Room Air This patient is alert, interactive, no apparent distress, ambulatory into the ED, gait is normal and moving quickly, observed her walk back to room 4. She is able to speak in complete sentences, no stridor, no wheezing. She does have a harsh sound in cough intermittently. Sclera clear, conjugate gaze, symmetrical facial function, wearing a mask. Lungs with occasional rhonchi left posterior field but otherwise clear, no wheezing or crackles, no tachypnea, no accessory muscle use. CV regular rate and rhythm, no murmur, normal S1-S2. Neck supple, no jugular venous distension, no adenopathy. She has no pitting edema of her lower extremities. Documenting provider has reviewed patient's vital signs: yes Course Course ED Course: With patient's prolonged symptoms, have discussed proceeding with chest CT imaging in doing contrast. With some of the blood streaking, will rule out thromboembolic disease as well doing chest CT PE protocol. It is likely that the blood streaking is from inflammation and inflammatory changes from infection. If the chest CT is not showing any pathology, need to consider sinus disease. This is very likely infectious in nature. May need different antibiotic. She is allergic to sulfa antibiotics. Will check baseline labs, clinically looking at her, still seems appropriate for outpatient management if this is diagnosed as pneumonia, may need to just consider a change in antibiotics. Will also look at the possibility of new respiratory etiology and do the triple viral swab. On July 23 I do see that she had negative triple viral swab, will reassess this today. She only had the chest x-ray done on July 16 which was reviewed from urgent care. Reevaluation(s) Time of Reevaluation #1: 14:15 Reevaluation #1: Have reviewed her CT report with her, reassuring labs. She does have pneumonia but no evidence of pulmonary embolus. We are going to initiate 1 g IV Rocephin here. Discussed outpatient management which she meet criteria for. She would like to do full coverage, will give her prescription for cefdinir and a Z-Sam. Did discuss with her that technically the doxycycline should have covered atypicals but she is not improved. Thus, think it is reasonable to do dual antibiotic coverage to be complete. We will discharge after the Rocephin. We have discussed signs and symptoms for return. Vital Signs Vital signs: Initial Vital Signs Temperature 99.7 F H 08/06/25 10:55 Temperature Source Temporal Artery Scan 08/06/25 10:55 Pulse Rate 100 08/06/25 10:55 Pulse Rhythm Regular 08/06/25 10:55 Respiratory Rate 100 H 08/06/25 10:55 Blood Pressure 182/80 H 08/06/25 10:55 Blood Pressure Mean 114 H 08/06/25 10:55 Blood Pressure Position Sitting 08/06/25 10:55 Pulse Oximetry 96 08/06/25 10:55 Oxygen Delivery Method Room Air 08/06/25 10:55 Vital Signs Temperature 99.7 F H 08/06/25 10:55 Pulse Rate 100 08/06/25 10:55 Respiratory Rate 100 H 08/06/25 10:55 Blood Pressure 182/80 H 08/06/25 10:55 Pulse Oximetry 96 08/06/25 10:55 Oxygen Delivery Method Room Air 08/06/25 10:55 Temperature 100.1 F H 08/06/25 14:18 Pulse Rate 84 08/06/25 14:18 Respiratory Rate 20 08/06/25 14:18 Blood Pressure 128/84 08/06/25 14:18 Pulse Oximetry 99 08/06/25 14:18 Oxygen Delivery Method Room Air 08/06/25 14:18 Medications Administered Medications: Discontinued Medications Generic Name Dose Route Start Last Admin Trade Name Freq PRN Reason Stop Dose Admin Ceftriaxone Sodium 1 gm/ 100 mls @ 200 mls/hr 08/06/25 14:20 08/06/25 14:38 Sodium Chloride IVPB 08/06/25 14:21 200 mls/hr ONCE ONE Administration Medical Decision Making Lab Data Lab results reviewed: Yes I reviewed the patient's lab results Labs: Lab Results 08/06/25 Range/Units 12:40 WBC 10.10 (4.50-11.00) K/uL RBC 4.47 (4.00-5.20) m/uL Hgb 13.1 (12.0-16.0) gm/dL Hct 40.7 (33.0-51.0) % MCV 91 (80-100) fL MCH 29 (26-34) pg MCHC 32 (32-36) gm/dL RDW Coeff of Dash 12.7 (11.5-15.5) % Plt Count 210 (140-440) K/uL Neut % (Auto) 84.2 H (42.0-72.0) % Lymph % (Auto) 6.8 L (20-44) % [place] % (Auto) 8.3 (0.0-11.0) % Eos % (Auto) 0.3 (0.0-7.0) % Baso % (Auto) 0.2 (0.0-3.0) % Neut # (Auto) 8.50 H (1.7-7.0) K/uL Lymph # (Auto) 0.70 L (0.90-2.90) K/uL [place] # (Auto) 0.80 (0.00-0.90) K/UL Eos # (Auto) 0.03 (0.00-0.50) K/uL Baso # (Auto) 0.02 (0.00-0.30) K/uL Abs Immat Gran (auto) 0.02 (0.00-0.30) K/uL Imm/Tot Granulo (auto) 0.2 % Sodium 133 L (135-149) mmol/L Potassium 3.9 (3.6-5.1) mmol/L Chloride 99 (96-114) mmol/L Carbon Dioxide 25 (20-32) mmol/L Anion Gap 9 (7-15) mEq/L BUN 11 (7-30) mg/dL Creatinine 0.7 (0.5-1.5) mg/dL Estimated Creat Clear 39.50 Estimated GFR 93 ml/min Glucose 109 (60-115) mg/dL Lactate 0.6 (0.5-1.9) mmol/L Calcium 8.9 (8.4-10.6) mg/dL Total Bilirubin 0.7 (0.1-1.5) mg/dL AST 33 (12-35) U/L ALT 36 H (4-35) U/L Alkaline Phosphatase 78 (40-150) U/L C-Reactive Protein 5.0 H (0.5-1.0) mg/dL Total Protein 7.3 (6.0-8.3) g/dL Albumin 4.2 (3.3-5.0) g/dL SARS-CoV-2 (PCR) Negative SARS-CoV-2 (Negative) Influenza Type A (PCR) Negative PCR FLU A (Negative) Influenza Type B (PCR) Negative PCR FLU B (Negative) RSV (PCR) Negative PCR RSV (Negative) Imaging Data CT scan - chest: Attestation: I have reviewed the pertinent imaging results. Radiologist's impression: Patient: KO GARG Facility:?[facility] Patient ID:?[id number] Site Patient ID:?[id number]. Site :?[id number] Study:?CT-Chest Angio 95CC ISOVUE 370-08/06/2025 1:44:47 PM Ordering Physician:Edda Chris Final Report: INDICATION: Ongoing cough, recent pneumonia TECHNIQUE: CT chest PE was acquired with 95 cc Isovue 370 IV contrast. Coronal and MIP reconstructions were performed. COMPARISON: Chest radiograph 07/16/2025. FINDINGS: Heart and vasculature: Contrast opacification of the pulmonary arterial tree is adequate. No sign of pulmonary embolism. Heart size is at the upper limits of normal. Thoracic aorta and pulmonary artery are normal in caliber. Lungs and pleura: There are linear areas of consolidation most consistent with subsegmental atelectasis, for example within the right lower lobe (series 6, image 88). Patchy areas of ground-glass opacification are present, including an area of patchy, somewhat nodular ground-glass opacities in the right lower lobe (for example series 6, image 115). No pleural effusion or pneumothorax. Lymph nodes/mediastinum: No mediastinal, hilar, or axillary adenopathy. Chest wall: Unremarkable. Upper abdomen: No acute findings. Multiple incompletely characterized small hepatic hypodensities. Prior cholecystectomy. Small hiatal hernia. Bones: No acute or suspicious osseous abnormality. IMPRESSION: 1. No evidence of pulmonary embolism. 2. Mild, patchy ground-glass opacities predominantly within the lower lobes may be infectious or inflammatory. Areas of linear consolidation are most consistent with atelectasis. Please note that all CT scans at this facility use dose modulation, iterative reconstruction, and/or weight-based dosing when appropriate to reduce radiation dose to as low as reasonably achievable. Dictated by Gema Vazquez MD @ 08/06/2025 1:57:35 PM (Electronic Signature) Discharge Plan Discharge Clinical Impression: Community acquired pneumonia Patient Disposition: Home, Self-Care Condition: Stable Instructions: Community Acquired Pneumonia (ED) Additional Instructions: Start Z-Sam when you get it, take daily per prescription dosing instructions. Start cefdinir this evening, take as prescribed and complete this. Need to schedule follow-up in clinic within the next week for recheck. If you feel you are worsening, becoming more ill, have increased difficulty breathing or concerns with her breathing, please return to the ER for further evaluation. May use [id number] cough and cold symptoms as needed for control, follow package instructions. Activity Level: Activity as Tolerated Prescriptions: New azithromycin 250 mg tablet See Rx Instructions .ROUTE .COMPLEX Qty: 6 0RF Rx Instructions: For 250 mg dose pack: take 500 mg today (day 1), then 250 mg for 4 days (days 2-5) cefdinir 300 mg capsule 300 mg PO BID Qty: 20 0RF No Action cephalexin 500 mg tablet 500 mg PO .PRN Patient Comments: For UTIs losartan 50 mg tablet 50 mg PO QDAY Qty: 90 3RF levothyroxine 75 mcg tablet 75 mcg PO DAILY Qty: 90 3RF Follow Up/Referrals: Alexandria Candelario MD [Primary Care Provider, Internal Medicine] Stand Alone Forms: [employer] Info Instructions
--- NOTE | 2025-08-06 12:15 | CRLHL7_ITS ---
For Patients: As a result of the Century Cures Act, medical imaging exams and procedure reports are released immediately into your electronic medical record. You may view this report before your referring provider. If you have questions, please contact your health care provider. INDICATION: Ongoing cough, recent pneumonia TECHNIQUE: CT chest PE was acquired with 95 cc Isovue 370 IV contrast. Coronal and MIP reconstructions were performed. COMPARISON: Chest radiograph 07/16/2025. FINDINGS: Heart and vasculature: Contrast opacification of the pulmonary arterial tree is adequate. No sign of pulmonary embolism. Heart size is at the upper limits of normal. Thoracic aorta and pulmonary artery are normal in caliber. Lungs and pleura: There are linear areas of consolidation most consistent with subsegmental atelectasis, for example within the right lower lobe (series 6, image 88). Patchy areas of ground-glass opacification are present, including an area of patchy, somewhat nodular ground-glass opacities in the right lower lobe (for example series 6, image 115). No pleural effusion or pneumothorax. Lymph nodes/mediastinum: No mediastinal, hilar, or axillary adenopathy. Chest wall: Unremarkable. Upper abdomen: No acute findings. Multiple incompletely characterized small hepatic hypodensities. Prior cholecystectomy. Small hiatal hernia. Bones: No acute or suspicious osseous abnormality. IMPRESSION: 1. No evidence of pulmonary embolism. 2. Mild, patchy ground-glass opacities predominantly within the lower lobes may be infectious or inflammatory. Areas of linear consolidation are most consistent with atelectasis. Please note that all CT scans at this facility use dose modulation, iterative reconstruction, and/or weight-based dosing when appropriate to reduce radiation dose to as low as reasonably achievable. Dictated by Gema Vazquez MD @ 08/06/2025 1:57:35 PM (Electronically Signed)
[2025-08-06 12:40] VITALS: O2SAT 99
[2025-08-06 12:47] LABS: Lactate* 0.6 mmol/L (0.5-1.9)
[2025-08-06 12:48] LABS: Hematocrit* 40.7 % (33.0-51.0); Hemoglobin* 13.1 gm/dL (12.0-16.0); Immature Granulocytes Abs Auto 0.02 K/uL (0.00-0.30); Immature Granulocytes Pct Auto 0.2 %; Mean Corpuscular HGB Conc 32 gm/dL (32-36); Mean Corpuscular Hemoglobin 29 pg (26-34); Mean Corpuscular Volume 91 fL (80-100); RDW Coefficient of Variation % 12.7 % (11.5-15.5); Red Blood Count* 4.47 m/uL (4.00-5.20); White Blood Count* 10.10 K/uL (4.50-11.00)
[2025-08-06 12:50] LABS: Lymphocytes Absolute Auto 0.70 K/uL (0.90-2.90)
[2025-08-06 12:51] LABS: Slide Review Reflex No
[2025-08-06 13:08] LABS: Chloride* 99 mmol/L (96-114)
[2025-08-06 13:09] LABS: Albumin* 4.2 g/dL (3.3-5.0); Potassium* 3.9 mmol/L (3.6-5.1); Sodium* 133 mmol/L (135-149)
[2025-08-06 13:11] LABS: Blood Urea Nitrogen* 11 mg/dL (7-30); Creatinine* 0.7 mg/dL (0.5-1.5); Est. Creatinine Clearance* 39.50; Estimated Glomerular Filt Rate 93 ml/min
[2025-08-06 13:12] LABS: Alanine Aminotransferase* 36 U/L (4-35); Alkaline Phosphatase* 78 U/L (40-150); Anion Gap 9 mEq/L (7-15); Aspartate Amino Transferase* 33 U/L (12-35); Bilirubin Total* 0.7 mg/dL (0.1-1.5); Calcium* 8.9 mg/dL (8.4-10.6); Carbon Dioxide* 25 mmol/L (20-32); Glucose* 109 mg/dL (60-115); Total Protein* 7.3 g/dL (6.0-8.3)
[2025-08-06 13:31] LABS: PCR FLU A Negative PCR FLU A (Negative); PCR FLU B Negative PCR FLU B (Negative); PCR RSV Negative PCR RSV (Negative); SARS PCR* Negative SARS-CoV-2 (Negative)
[2025-08-06 14:18] VITALS: BP 128/84; PULSE 84; RESP 20; TEMP 37.8; O2SAT 99
[2025-08-06] MEDS: cefTRIAXone 1 GM in 0.9 % SODIUM CHLORIDE Mini-bag 100 ML IVPB (14:38)
== END 2025-08-06 15:15 | disposition home or self-care (01) ==
PROVIDERS: Emergency Provider Family Medicine; PCP Internal Medicine
DX: J18.9 Pneumonia, unspecified organism (principal)
CPT/HCPCS: 36415; 71275; 80053; 83605; 85025; 86140; 87631; 94761; 96374; 99284; 99285; J0696; Q9967